=== PATIENT | female | born 1950 | race Caucasian/White ===

== ENCOUNTER 2024-10-11 10:59 | Outpatient (CLI) | payer MEDICARE, MEDICAID | END 2024-10-11 23:59 | disposition home or self-care (01) | LOC: RAD 10:59 | PROVIDERS: ATTEND Internal Medicine | DX: R13.12 Dysphagia, oropharyngeal phase (principal); G20.A1 Parkinson's disease without dyskinesia, without mention of fluctuations; E55.9 Vitamin D deficiency, unspecified; C95.10 Chronic leukemia of unspecified cell type not having achieved remission; E03.9 Hypothyroidism, unspecified; M19.90 Unspecified osteoarthritis, unspecified site | CPT/HCPCS: 74230 ==